=== PATIENT | male | born 1945 | race Caucasian/White ===

== ENCOUNTER 2017-02-17 23:28 | Inpatient (IN) | payer MEDICARE, OTHER ==
[2017-02-18 00:17] LABS: Band 2 % (5-11); Hematocrit 57.5 % (42.0-52.0); Mean Platelet Volume 9.8 fL (7.4-10.4); Neutrophil 82 % (42-75); Red Blood Cell (RBC) Count 5.77 mill/uL (4.70-6.10); White Blood Cell (WBC) Count 20.2 thou/uL (4.8-10.8)
[2017-02-18 00:18] LABS: ALT (SGPT) 18 U/L (8-55); AST (SGOT) 28 U/L (5-34); Alkaline Phosphatase 89 U/L (40-150); Anion Gap 15 mmol/L (10-20); BUN (Urea Nitrogen) 23 mg/dL (8.4-25.7); Bilirubin, Total 0.7 mg/dL (0.2-1.2); CK (CPK) 155 U/L (30-200); Calc. Creatinine Clearance 0 mL/min (70-130); Calcium 10.1 mg/dL (7.8-10.44); Carbon Dioxide 24 mmol/L (23-31); Chloride 103 mmol/L (98-107); Estimated GFR-MDRD 32; Globulin 3.7 g/dL (2.4-3.5); Lipase 38 U/L (8-78); Protein, Total 7.8 g/dL (5.8-8.1)
[2017-02-18 00:25] LABS: Troponin I 0.011 ng/mL (< 0.028)
[2017-02-18] MEDS ORDERED: cefTRIAXone\\ROCEPHIN 1 GM VIAL ONE (01:49)
[2017-02-18] MEDS ORDERED: Sodium Chloride 0.9% 100 ML ONE (01:49)
[2017-02-18 02:11] LABS: Lactic Acid - Sepsis 1.8 mmol/L (0.5-2.2)
[2017-02-18] MEDS ORDERED: Morphine 2 MG/ML SYRINGE ONE (03:09)
[2017-02-18] MEDS ORDERED: methylPREDNISolone Sod Succ/PF 125 MG/2 ML VIAL ONE (03:09)
[2017-02-18] MEDS ORDERED: Water For Inject, Bacteriostat 30 ML ONE (03:10)
[2017-02-18 04:32] LABS: Bilirubin Small (Negative); Blood, Urine Negative (Negative); Glucose, Urine (Dipstick) Negative (Negative); Ketone, Urine Trace mg/dL (Negative); Nitrite Positive (Negative); Protein, Urine (Dipstick) 30 mg/dL (Neg-Trace)
[2017-02-18 04:36] LABS: Bacteria/HPF None Seen HPF (None Seen); RBC/HPF 0-3 HPF (0-3); Squamous Epithelial 0-3 HPF (0-3)
[2017-02-18 04:51] LABS: Oval Fat Bodies/HPF None Seen HPF (None Seen); Renal Epithelial 0-3 HPF (0-3); Sperm/HPF None Seen HPF (None Seen); Transitional Epithelial NONE SEEN HPF (0-3); Trichomonas/HPF None Seen HPF (None Seen); Yeast-All Forms None Seen HPF (None Seen)
[2017-02-18 05:24] LABS: Troponin I 0.014 ng/mL (< 0.028)
[2017-02-18] MEDS: Sodium Chloride 0.45% 1,000 ML IV SCH ×2 (06:33→13:49)
[2017-02-18] MEDS: metroNIDAZOLE 500 MG in Premix Bag 1 BAG IVPB SCH ×3 (06:41→21:29)
[2017-02-18 08:14] LABS: Troponin I 0.013 ng/mL (< 0.028)
[2017-02-18 08:30] VITALS: BMI 24.5
--- NOTE | 2017-02-18 09:28 | RAD ---
CHEST 1 VIEW: HISTORY: Cough. COMPARISON: Chest 1 view 02/26/14. FINDINGS: Continued elevation of left hemidiaphragm. Linear opacities of both lung bases with compressive ate lectasis left lower lobe. No pneumothorax. IMPRESSION: 1. No acute intrathoracic abnormality. 2. Chronic elevation of left hemidiaphragm. POS: [facility]
--- NOTE | 2017-02-18 10:57 | CT ---
PRELIMINARY REPORT/[facility]/EMERGENCY AFTER HOURS PROCEDURE: EXAM: CT Angiography Chest With Intravenous Contrast CLINICAL HISTORY: 73 years old, male; Hip pain; abdominal pain; chest pain. No diarrhea. No fever. He reports nausea c hills, diaphoresis. SX: stent placement. Prior splenectomy 01/20/2014, bladder ca sx, mass removed f rom pancreass TECHNIQUE: Axial computed tomographic angiography images of the chest with intravenous contrast using pulmonary embolism protocol. Coronal reformatted images were created and reviewed. Oblique reformatted images were created and reviewed. CONTRAST: 60 mL of ISOVUE 370 administered intravenously. COMPARISON: No relevant prior studies available. FINDINGS: Pulmonary arteries: No evidence of pulmonary embolism. Aorta: Normal caliber thoracic aorta without dissection or aneurysm. Lungs: Left lung base areas of consolidation and/or atelectasis adjacent to the left hemidiaphragm. Areas of linear parenchymal scarring or subsegmental collapse / atelectasis in the right lung. Small calcified granuloma lateral left lower lobe image 67, series 2. Pleural space: No pleural fluid collection. No pneumothorax. Heart: No pericardial effusion. Coronary artery and aortic valve annulus calcification. No evidence of RV dysfunction. Bones/joints: Spinal degenerative changes. No acute fracture. No dislocation. Soft tissues: Unremarkable. Lymph nodes: No pathologically enlarged lymph nodes. IMPRESSION: 1. No evidence of pulmonary embolism. 2. Left lung base areas of consolidation and/or atelectasis adjacent to the left hemidiaphragm. 3. Areas of linear parenchymal scarring or subsegmental collapse / atelectasis in the right lung. Thank you for allowing us to participate in the care of your patient. Dictated and Authenticated by: Moshe Cochran MD 02/18/2017 4:15 AM Central Time ([place] \T\ [place]) FINAL REPORT CT ANGIOGRAM OF THE CHEST WITH COTNRAST: HISTORY: Chest pain. Cough. COMPARISON: CTA of the chest from 2014. TECHNIQUE: CT angiogram chest performed after intravenous administration of contrast. Three-D rendering is pro vided. FINDINGS/IMPRESSION: Findings and impression are concordant with the preliminary report. In addition, there is some mucu s plugging of the right lower lobe bronchi suggesting bronchopneumonia or aspiration. POS: [facility]
--- NOTE | 2017-02-18 10:58 | CT ---
PRELIMINARY REPORT/[facility]/EMERGENCY AFTER HOURS PROCEDURE: EXAM: CT Abdomen and Pelvis With Intravenous Contrast CLINICAL HISTORY: 73 years old, male; Hip pain; abdominal pain; chest pain. No diarrhea. No fever. He reports nausea, chills, diaphoresis. SX: stent placement. Prior splenectomy 01/20/2014, bladder ca sx, mass removed from pancreass TECHNIQUE: Axial computed tomography images of the abdomen and pelvis with intravenous contrast. Coronal reformatted images were created and reviewed. CONTRAST: 60 mL of ISOVUE 370 administered intravenously. COMPARISON: No relevant prior studies available. FINDINGS: Lower thorax: Left lung base areas of consolidation and/or atelectasis adjacent to the left hemidiap hragm. Coronary artery calcification. ABDOMEN: Liver: Unremarkable. No mass. Gallbladder and bile ducts: Unremarkable. No calcified stones. No ductal dilation. Pancreas: Unremarkable. No mass. No ductal dilation. Spleen: Prior splenectomy. Adrenals: Unremarkable. No mass. Kidneys and ureters: No hydronephrosis. Bilateral renal cysts. Stomach and bowel: Diffuse wall thickening of the descending colon and proximal / mid sigmoid colon with pericolonic stranding indicating a colitis. No obstruction. Appendix: No findings to suggest acute appendicitis. PELVIS: Bladder: Unremarkable. No mass. Reproductive: Enlarged prostate gland measuring 5.3 cm transversely with internal calcifications. Prior vasectomy. ABDOMEN and PELVIS: Intraperitoneal space: Unremarkable. No free air. No significant fluid collection. Bones/joints: Spinal degenerative changes. No acute fracture. No dislocation. Soft tissues: Anterior left abdominal wall fat-containing ventral hernia. Vasculature: Unremarkable. No abdominal aortic aneurysm. Lymph nodes: Unremarkable. No enlarged lymph nodes. IMPRESSION: 1. Diffuse wall thickening of the descending colon and proximal / mid sigmoid colon with pericolonic stranding indicating a colitis. 2. Enlarged prostate gland measuring 5.3 cm transversely with internal calcifications. 3. Prior splenectomy. 4. Left lung base areas of consolidation and/or atelectasis adjacent to the left hemidiaphragm. Thank you for allowing us to participate in the care of your patient. Dictated and Authenticated by: Moshe Cochran MD 02/18/2017 4:15 AM Central Time ([place] \[place]\ [place]) FINAL REPORT CT ABDOMEN AND PELVIS WITH CONTRAST: HISTORY: Abdominal pain. Nausea. Chest pain. Surgery for bladder cancer. COMPARISON: CT abdomen and pelvis 02/01/14. FINDINGS/IMPRESSION: Findings and impression are concordant with the preliminary report. In addition, there is focal ect jairo of the infrarenal abdominal aorta measuring 2.9 x 2.5 cm for a craniocaudal length of 3 cm. Severe degenerative disease at L5-S1. POS: [facility]
[2017-02-18] MEDS ORDERED: cefTRIAXone\\ROCEPHIN 1 GM, Admixture Fee 1 EACH in Sodium Chloride 0.9% 100 ML IVPB SCH (14:00)
[2017-02-18] MEDS: PROVENTIL INHALER 6.7 G (200 INHALATIONS) INH SCH ×4 (15:40→23:10)
[2017-02-18] MEDS: Ipratropium Bromide 2.5 ml Neb NEB SCH ×3 (15:41→23:14)
[2017-02-18] MEDS ORDERED: Iopamidol 370 76% 100 ML VIAL ONE (16:05)
--- NOTE | 2017-02-18 16:50 | HP ---
TIME: 11:00 a.m. CHIEF COMPLAINT: Abdominal pain and chest pain. HISTORY OF PRESENT ILLNESS: This is a 72-year-old male with a history of chronic obstructive pulmon chavez disease, coronary artery disease, type 2 diabetes, hypertension and hyperlipidemia, presenting w ith a 1 day history of worsening chest and abdominal pain. He states that 2 days prior to admission , he was feeling well in his usual state of health. The day before admission, he started feeling il l in the evening with significant abdominal pain as the first presenting symptom. This pain worsene d throughout the course of the night and was associated with diaphoresis and feeling short of breath . He presented to the ER late last evening complaining of severe abdominal pain with cramping and d iarrhea as well as chest pain and shortness of breath. The ER doctor's assessment was a chronic obs tructive pulmonary disease exacerbation, rule out myocardial infarction and this is the report I rec eived. When I spoke to the patient this morning, it seems that his symptoms are really more abdomin al than chest related. His chest pain is completely resolved by the time I saw him this morning; ho wever, he continues to have abdominal pain and loose stool. PAST MEDICAL HISTORY: 1. Type 2 diabetes, on insulin. 2. Chronic obstructive pulmonary disease. 3. Coronary artery disease. 4. Hypertension. 5. Hyperlipidemia. 6. Major depression. 7. History of hepatitis C. 8. History of bladder cancer. PAST SURGICAL HISTORY: 1. Bladder resection. 2. Coronary artery disease, stenting in 2011. 3. Splenectomy in 2013. 4. Partial pancreatectomy in 2013. 5. Incisional hernia repair in 2015. 6. Last colonoscopy in 2012 was normal. HOME MEDICATIONS: Include the following; 1. Albuterol 2 puffs q.4 hours p.r.n. 2. Aspirin 81 mg daily. 3. Atorvastatin 10 mg daily. 4. Carvedilol 6.25 b.i.d. 5. Cymbalta 60 mg daily. 6. Prozac 20 mg daily. 7. Neurontin 300 mg daily. 8. Lisinopril 5 mg daily. 9. Bupropion 100 mg daily. 10. Omeprazole 40 mg daily. 11. Levemir pen 12 units q.h.s. 12. Vitamin C. 13. Fish oil. 14. Vitamin B12. ALLERGIES: Include LEVAQUIN and HYDROMORPHONE. FAMILY HISTORY: Noncontributory. SOCIAL HISTORY: He is , lives with his . He denies smoking, although he does report occ asional marijuana use. REVIEW OF SYSTEMS: General: No fever, no fatigue. He did have some chills overnight associated wi th this crampy abdominal pain. HEENT: Negative. Cardiovascular: Significant for chest pain overn ight, although this resolved at this point in time. Pulmonary: Positive for shortness of breath, i mproved at this time. Gastrointestinal: Significant for abdominal pain, nausea. No vomiting. Pk e diarrhea. No constipation. Neurologic: Negative. Skin: Negative. Genitourinary: Negative. PHYSICAL EXAMINATION: VITAL SIGNS: Temperature 97, pulse 87, respirations 20, O2 saturation 93% on 2 liters and blood pre ssure 141/97. GENERAL: This is an elderly male in no apparent distress, but who appears moderately uncomfortable. HEENT: Unremarkable. HEART: Regular rate and rhythm with no murmurs. LUNGS: Clear to auscultation bilaterally, but with diminished breath sounds throughout both lung fi elds. ABDOMEN: Soft, slightly hyperactive bowel sounds. Tenderness on the left lower quadrant and extend ing up the left flank. EXTREMITIES: Show no clubbing, cyanosis or edema. NEUROLOGIC: Nonfocal. LABORATORY AND X-RAY FINDINGS: White count 20.2, hemoglobin 18.1, hematocrit 57.5 and platelets 247 . D-dimer is greater than 20. Comprehensive metabolic panel is significant for creatinine of 2.07, otherwise normal. Urinalysis is positive for nitrites, trace ketones, small leukocyte esterase and 4-6 wbc's. Stool studies were negative for Campylobacter and Shigella toxin. C. difficile was neg ative, but stool occult blood was positive. Chest x-ray: No acute intrathoracic abnormality and ch ronic elevation of the left hemidiaphragm. A CT angio of the chest for the elevated D-dimer, this d id not show any evidence of PE. He also had a CT of the abdomen and pelvis, the dictation is not av ailable at the time of this dictation, but by the ER report, there is a diffuse wall thickening of t he descending colon and proximal mid sigmoid colon with pericolonic stranding indicating colitis. T here is an enlarged prostate gland measuring 5.3 cm, history of splenectomy, left lung base with an area of consolidation or atelectasis adjacent to the left hemidiaphragm. This is a chronic finding. ASSESSMENT: This is a 72-year-old male presenting with: 1. Severe abdominal pain and what appears to be a colitis of the descending colon. 2. Chronic obstructive pulmonary disease without acute exacerbation. 3. Type 2 diabetes, stable. 4. Coronary artery disease. 5. Hypertension. 6. Hyperlipidemia. 7. Major depression. PLAN: The patient was admitted for management of the above problems: 1. For the colitis, he was started on IV Flagyl and will consult GI. It is unclear to me whether t his is ischemic or infectious. Initial infection studies are negative, although he does have an joleen vated white count. We will await GI input on this. 2. He can have a full liquid diet for now until GI weighs in on whether or not they want to scope h im. 3. Continue home medications. 4. Acute renal insufficiency. This may simply be due to the profuse diarrhea that he had last nigh t. We will recheck his labs in the morning.
[2017-02-18] MEDS ORDERED: INSULIN DETEMIR SC SCH (21:00)
[2017-02-18] MEDS: Carvedilol 6.25 MG TAB PO SCH (21:29)
[2017-02-18] MEDS: Tamsulosin HCl 0.4 MG CAP PO SCH (21:29)
[2017-02-18] MEDS: buPROPion HCl 100 MG TAB PO SCH (21:29)
[2017-02-18] MEDS: Insulin Detemir 100 UNITS/ML 9 UNITS in Pre-Filled Syringe 1 EACH SC SCH (21:30)
[2017-02-19] MEDS: cefTRIAXone\\ROCEPHIN 1 GM, Admixture Fee 1 EACH in Sodium Chloride 0.9% 100 ML IVPB SCH ×2 (01:34→13:36)
--- NOTE | 2017-02-19 01:40 | CON ---
DATE OF CONSULTATION: 02/18/2017 REFERRING PHYSICIAN: Ainsley Shah MD REASON FOR CONSULTATION: 1. Blood in the stool. 2. Abdominal pain, fever, chills, and cold sweats yesterday. HISTORY OF PRESENT ILLNESS: Mr. Tremaine Mendez is a very pleasant 72-year-old male who appe ars comfortable at the present time. The patient was brought to the ER by the family because of off and on abdominal cramping pain, which was very severe in origin with some fever and chills alternat ing with cold sweat. He also had an explosive bowel movement yesterday and he felt very bloated and distended. The patient has no hematochezia or melena. However, the stool guaiac done came back po sitive while in hospital. The patient is known to Dr. Sosa from before. The patient had a colonosc opy in 2012 and was found to have sigmoid diverticulitis. An EGD at that time revealed no pathology . The patient was also hospitalized here in 2012 with findings of supraventricular tachycardia. At that time, he underwent ablation. During the admission, he also has some abdominal pain and some m ild bleeding in the stool. He underwent an abdominal CAT scan and the CAT scan was reported as coli tis. Dr. Sosa perfomed another colonoscopy in 2012. The patient has had pancreatitic cyst and has had an in [place], [place]. He underwent surgery in [place] in 2013. After surgery, he says he d eveloped diabetes and also developed a ventral hernia, he has had the hernia repaired 3 times. The last one was in 2012, and the hernia keeps coming back. He is very unhappy about this hernia and he also has some pain. At the present time, he appears very comfortable and in no distress. However, he says he still has [id number] abdominal pain. The patient had no stool today. There is no nausea, no vomiting. He has no other relevant history. ALLERGIES: LEVOFLOXACIN, HYDROMORPHONE. SOCIAL HISTORY: The patient is . He quit smoking. He does not drink any alcohol. MEDICAL ILLNESSES: 1. Diabetes mellitus. 2. Chronic obstructive pulmonary disease. 3. Prostatic hypertrophy. 4. Bladder cancer, status post surgery. 5. Pancreatic cyst, status post partial pancreatic resection in [place] in 2013. 6. Incisional hernia over the left upper quadrant, status post surgery and the last one was in [address] Winters. 7. Depression. 8. Hypertension. 9. Acid reflux. 10. History of bladder cancer surgery in the past. 11. History of SVT, status post ablation in 2012. 12. History of hepatitis C, status post treatment in the past. MEDICATIONS: List reviewed which included Wellbutrin, Spiriva inhaler, tamsulosin, omeprazole, nitr oglycerin, lisinopril, insulin, gabapentin, fluoxetine, duloxetine, and Coreg. He is also on atorva statin, aspirin, vitamin C, albuterol inhaler. FAMILY HISTORY: Negative for any liver cancer, colon cancer, stroke, etc. REVIEW OF SYSTEMS: A 10-point system reviewed. 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 Respiratory system: No history of chronic cough, but has lessened whee zing off and on and also has some mild exertional dyspnea. Cardiovascular system: At the present t harleen, no chest pain, no palpitation, no orthopnea or PND. Gastrointestinal: As in history of presen t illness. Genitourinary: No dysuria, hematuria, or frequency of urination. Extremities: No pain or edema. PHYSICAL EXAMINATION: GENERAL: The patient is awake, alert, and communicative. He is in no acute distress. VITAL SIGNS: Stable. Temperature 98.4 degrees Fahrenheit, pulse is 93, blood pressure is 147/82. HEENT: Conjunctivae clear. NECK: Supple. No adenitis or thyromegaly noted. CARDIOVASCULAR: First and second heart sounds normal. LUNGS: Clear to auscultation except for rhonchi. ABDOMEN: Soft to palpate. He does have a ventral hernia over the left upper quadrant. The hernia reduced. He is tender diffusely all over the abdomen. There is no rebound or guarding. Bowel soun ds are normal. EXTREMITIES: Reveal no edema. LABORATORY AND DIAGNOSTIC DATA: CBC: WBC 20,200, hemoglobin 18.1, hematocrit 57.5, MCV 99.6, plate let count 247,000, polymorphs 52, bands 2, lymphocytes 14. Serum chemistries: Sodium 138, potassiu m 3.7, chloride 103, bicarbonate 24, BUN is 23, creatinine 2.07, glucose 149, calcium 10.1, bilirubi n 0.7, AST 28, ALT 18, alkaline phosphatase 89. CPK 3.5, troponin 0.011, total protein 7.8, albumin 4.1, lipase 38. An abdominal CAT scan showed evidence of colitis with diffuse wall thickening of t he descending colon and proximal and mid sigmoid colon. Enlarged prostate and also left lower lobe atelectasis. CLINICAL IMPRESSION: A 72-year-old male with abdominal pain, nausea, fever, chills, bleed ing, and cold sweat. The symptoms are actually very slowly resolving. He has no fever at the prese nt time. Abdomen is nondistended, but does have tenderness diffusely. There is no rebound or guard ing. Abdomen is marked for no guarding or rigidity. On going out to the [facility] [place], he had a CAT sca n done in 2013 and again showed some colitis. He had the similar findings in 2013, which showed lef t colon wall thickening. The CAT scan shows colitis of the left colon. Based on the information, I believe most likely he has ischemic colitis. possibly. RECOMMENDATIONS: 1. Analgesics. 2. Clear liquid diet. 3. IV fluids. 4. IV antibiotics. Dr. Sosa had seen before in the past and will see Dr. Sosa who will decide if he will need any furth er colonoscopy. He has had a colonoscopy in 2013 that was basically normal. I am really not sure lonny villagran needs another colonoscopy. In the meantime, treat him symptomatically.
[2017-02-19] MEDS: PROVENTIL INHALER 6.7 G (200 INHALATIONS) INH SCH ×5 (03:04→22:47)
[2017-02-19 05:23] LABS: Anion Gap 9 mmol/L (10-20); BUN (Urea Nitrogen) 18 mg/dL (8.4-25.7); Calc. Creatinine Clearance 76 mL/min (70-130); Calcium 8.3 mg/dL (7.8-10.44); Carbon Dioxide 26 mmol/L (23-31); Chloride 104 mmol/L (98-107); Estimated GFR-MDRD 77
[2017-02-19] MEDS: metroNIDAZOLE 500 MG in Premix Bag 1 BAG IVPB SCH ×3 (05:27→22:49)
[2017-02-19 05:54] LABS: Band 9 % (5-11); Burr Cells SLIGHT = 2-5 cells (100X) (0-1/hpf); Hematocrit 39.6 % (42.0-52.0); Mean Platelet Volume 10.1 fL (7.4-10.4); Neutrophil 80 % (42-75); Red Blood Cell (RBC) Count 3.97 mill/uL (4.70-6.10); White Blood Cell (WBC) Count 29.7 thou/uL (4.8-10.8)
[2017-02-19] MEDS: Ipratropium Bromide 2.5 ml Neb NEB SCH ×3 (06:35→18:49)
[2017-02-19] MEDS ORDERED: Aspirin 325 MG TAB PO SCH (09:00)
[2017-02-19] MEDS: Aspirin 81 mg Enteric Coated Tablet PO SCH (09:27)
[2017-02-19] MEDS: FLUoxetine HCl 20 MG CAP PO SCH (09:28)
[2017-02-19] MEDS: Carvedilol 6.25 MG TAB PO SCH ×2 (09:28→20:46)
[2017-02-19] MEDS: Gabapentin 300 MG CAP PO SCH (09:29)
[2017-02-19] MEDS: Lisinopril 5 MG TAB PO SCH (09:29)
[2017-02-19] MEDS: buPROPion HCl 100 MG TAB PO SCH ×2 (11:13→20:47)
--- NOTE | 2017-02-19 13:16 | PRG ---
DATE OF SERVICE: 02/19/2017 TIME: 11:45 a.m. SUBJECTIVE: The patient reports he feels much better today. He has tolerated a full liquid diet si nce yesterday without any significant symptoms. He had a normal soft bowel movement this morning wi thout any blood observed and no loose stool. He states his pain is improved from yesterday. OBJECTIVE: VITAL SIGNS: Temperature 98.0, pulse 78, respirations 18, O2 saturation 98% on room air, blood pres sure 144/75. GENERAL: Well-developed, well-nourished male in no apparent distress. HEENT: Unremarkable. HEART: Regular rate and rhythm with no murmurs. LUNGS: Clear to auscultation bilaterally. ABDOMEN: Soft, mild tenderness in both right and left lower quadrants, but otherwise unremarkable. EXTREMITIES: Show no clubbing, cyanosis, or edema. NEUROLOGIC: Nonfocal. LABORATORY DATA: He did have an increase in his white blood cell count from 20.2 to 29.7. We will repeat this again tomorrow. Chemistry is unremarkable. ASSESSMENT: 1. This is a 72-year-old male with what is most likely ischemic colitis. He is getting IV antibiot ics and will continue this for the time being. 2. Chronic obstructive pulmonary disease without acute exacerbation. 3. Type 2 diabetes. 4. Coronary artery disease. 5. Hypertension. 6. Hyperlipidemia. 7. Major depression. PLAN: 1. For the colitis, we will continue his IV Flagyl for now. We can advance his diet today to full diet. Dr. Chambers saw him yesterday and does not feel like colonoscopy is necessarily indicated a t this time. 2. Acute renal insufficiency. This is improving somewhat. Again, we will check his labs again becki orrow morning. 3. Continue home medications.
--- NOTE | 2017-02-19 18:17 | PRG ---
DATE OF SERVICE: 02/19/2017 HOSPITAL VISIT NOTE HISTORY OF PRESENT ILLNESS: This is a 72-year-old male hospitalized with abdominal pain, fever, and chills and cold sweat. He had abdominal CAT scan done, evidence of colitis. He is on IV antibiotics. He is also on IV morphine for pain relief. He looks a whole lot better. His a bdominal pain is markedly improved. He feels hungry and he wants to eat some solid food. He did no t have any fever, no nausea or vomiting. PHYSICAL EXAMINATION: GENERAL: Appears comfortable. He is afebrile. Pulse is 70, blood pressure 133/89. CARDIOVASCULAR: First and second heart sounds are normal. LUNGS: Clear to auscultation. ABDOMEN: Soft to palpate. Abdomen is nondistended. Abdomen is nontender. He has a large ventral hernia over the left lower quadrant. RECOMMENDATIONS: 1. 1800 ADA diet. 2. If he does well on his diet, discharge home tomorrow.
[2017-02-19] MEDS: Insulin Detemir 100 UNITS/ML 9 UNITS in Pre-Filled Syringe 1 EACH SC SCH (20:47)
[2017-02-19] MEDS: Tamsulosin HCl 0.4 MG CAP PO SCH (20:47)
[2017-02-19] MEDS ORDERED: Atorvastatin Calcium 10 MG TAB PO SCH (21:00)
[2017-02-20 01:25] VITALS: TEMP 98.1
[2017-02-20] MEDS: cefTRIAXone\\ROCEPHIN 1 GM, Admixture Fee 1 EACH in Sodium Chloride 0.9% 100 ML IVPB SCH (02:48)
[2017-02-20] MEDS: PROVENTIL INHALER 6.7 G (200 INHALATIONS) INH SCH ×3 (03:53→08:28)
[2017-02-20] MEDS: Ipratropium Bromide 2.5 ml Neb NEB SCH ×2 (03:55→06:52)
[2017-02-20] MEDS: metroNIDAZOLE 500 MG in Premix Bag 1 BAG IVPB SCH (06:22)
[2017-02-20 06:32] LABS: Band 7 % (5-11); Hematocrit 41.8 % (42.0-52.0); Mean Platelet Volume 10.2 fL (7.4-10.4); Neutrophil 79 % (42-75); Red Blood Cell (RBC) Count 4.18 mill/uL (4.70-6.10); White Blood Cell (WBC) Count 20.6 thou/uL (4.8-10.8)
[2017-02-20 06:35] LABS: ALT (SGPT) 14 U/L (8-55); AST (SGOT) 21 U/L (5-34); Alkaline Phosphatase 57 U/L (40-150); Anion Gap 10 mmol/L (10-20); BUN (Urea Nitrogen) 11 mg/dL (8.4-25.7); Bilirubin, Total 0.5 mg/dL (0.2-1.2); Calc. Creatinine Clearance 94 mL/min (70-130); Calcium 8.9 mg/dL (7.8-10.44); Carbon Dioxide 29 mmol/L (23-31); Chloride 103 mmol/L (98-107); Estimated GFR-MDRD 90; Protein, Total 6.4 g/dL (5.8-8.1)
[2017-02-20] MEDS: buPROPion HCl 100 MG TAB PO SCH (09:14)
[2017-02-20] MEDS: Aspirin 81 mg Enteric Coated Tablet PO SCH (09:14)
[2017-02-20] MEDS: Carvedilol 6.25 MG TAB PO SCH (09:15)
[2017-02-20] MEDS: FLUoxetine HCl 20 MG CAP PO SCH (09:15)
[2017-02-20] MEDS: Gabapentin 300 MG CAP PO SCH (09:15)
[2017-02-20] MEDS: Lisinopril 5 MG TAB PO SCH (09:15)
--- NOTE | 2017-02-20 10:20 | DIS ---
ADMISSION DIAGNOSES: Acute abdominal pain secondary to colitis. DISCHARGE DIAGNOSES: 1. Colitis, improved. 2. Acute urinary tract infection. 3. Type 2 diabetes. 4. Chronic obstructive pulmonary disease. 5. Known coronary disease. 6. History of bladder cancer, status post resection. PROCEDURES: IV antibiotics, rule out [place] protocol, CT abdomen and pelvis. CONSULTATIONS: Dr. Chambers for GI. HOSPITAL COURSE: This is a 72-year-old gentleman with multiple medical problems who was recently se en by Dr. Theodore for followup from his bladder cancer. He had a cystoscopy at that time and everyth ing was clear. The day prior to admission, he developed severe abdominal pain and chest pain. He w as found to be febrile in the emergency department. He was initially admitted from the ER for chest pain, rule out myocardial infarction, then later discovered he had more symptoms of abdominal pain consistent with colitis. He was made n.p.o. He was seen by Dr. Chambers. He was started on Rocep hin and Flagyl with significant improvement of his symptoms. He was ambulating in the [facility] rating an oral diet. He had some vague lower abdominal pain, but much improved from admission and w as stable for discharge on the day of discharge. DISCHARGE PHYSICAL EXAMINATION: VITAL SIGNS: Temperature 98.1 with a T-max of 98.7, pulse 65, respirations 16, blood pressure 155/7 1, pulse ox 93% on room air. GENERAL: He is awake and alert, in no acute distress. Speech is clear. NECK: Supple. HEART: Regular rate and rhythm. LUNGS: Lungs are distant bilaterally, but no wheeze, rales or rhonchi. ABDOMEN: Positive bowel sounds, soft, minimal suprapubic tenderness, but no rebound or guarding. DISCHARGE LABORATORY DATA: White blood cell count 20.6, which is down from 29.7 with a normal diffe rential. Hemoglobin and hematocrit 13.2 and 41.8, platelets 200. Sodium 138, potassium 3.6, chlori de 103, CO2 29, BUN and creatinine 11 and 0.84, serum glucose 123, AST and ALT are normal. Urinalys is was positive. Urine culture growing Staph epidermidis which was sensitive to the cephalosporins. C. diff and stool culture were all negative. Guaiac stool was positive x1. CT abdomen and pelvis revealed just diffuse wall thickening in the descending colon and mid sigmoid consistent with colit is, enlarged prostate. DISCHARGE MEDICATIONS: Cefdinir 300 mg b.i.d. for 7 more days, Proventil p.r.n., Ecotrin 81 mg liz y, Lipitor 10 mg daily, bupropion 100 mg b.i.d., carvedilol 6.25 mg b.i.d., Cymbalta 60 mg daily, ga bapentin 300 mg daily, Levemir 9 units daily, lisinopril 5 mg daily, Atrovent p.r.n., Protonix 40 mg daily, tamsulosin 0.4 mg daily. FOLLOWUP INSTRUCTIONS: The patient to follow up in my office in 1-2 weeks and follow up with Dr. Lillian luther as well.
[2017-02-20 19:01] VITALS: BP 133/87
== END 2017-02-20 10:55 | disposition home or self-care (01) | DRG 394 ==
LOC: ERS 23:28 → EDBD 02-18 04:00 → 2NO 02-18 04:00
PROVIDERS: ADMIT Family Medicine; ATTEND Family Medicine
DX: K55.9 Vascular disorder of intestine, unspecified (principal); N39.0 Urinary tract infection, site not specified; J44.9 Chronic obstructive pulmonary disease, unspecified; E11.9 Type 2 diabetes mellitus without complications; I10 Essential (primary) hypertension; B95.8 Unspecified staphylococcus as the cause of diseases classified elsewhere; Z90.6 Acquired absence of other parts of urinary tract; E78.5 Hyperlipidemia, unspecified; N40.0 Benign prostatic hyperplasia without lower urinary tract symptoms; I25.10 Atherosclerotic heart disease of native coronary artery without angina pectoris; N28.9 Disorder of kidney and ureter, unspecified; F32.9 Major depressive disorder, single episode, unspecified; Z85.51 Personal history of malignant neoplasm of bladder; Z95.5 Presence of coronary angioplasty implant and graft; Z79.4 Long term (current) use of insulin; Z79.82 Long term (current) use of aspirin; Z88.1 Allergy status to other antibiotic agents; Z88.5 Allergy status to narcotic agent; Z90.49 Acquired absence of other specified parts of digestive tract; Z90.81 Acquired absence of spleen
CPT/HCPCS: 36415; 36416; 51701; 71010; 71275; 74177; 80048; 80053; 81003; 81015; 82274; 82550; 82553; 83605; 83690; 83880; 84484; 85025; 85379; 87015; 87045; 87046; 87077; 87086; 87186; 87324; 87449; 87899; 93005; 94640; 94664; 96361; 96365; 96375; A4216; J0696; J1815; J2270; J2930; J7050; J7620; J7644

== ENCOUNTER 2018-04-08 17:53 | Emergency (ER) | payer MEDICARE, OTHER | END 2018-04-08 18:47 | disposition home or self-care (01) | LOC: SCSER 17:53 | DX: S61.012A Laceration without foreign body of left thumb without damage to nail, initial encounter (principal); S61.211A Laceration without foreign body of left index finger without damage to nail, initial encounter; I10 Essential (primary) hypertension; J44.9 Chronic obstructive pulmonary disease, unspecified; E78.5 Hyperlipidemia, unspecified; F41.9 Anxiety disorder, unspecified; Z87.891 Personal history of nicotine dependence; W45.8XXA Other foreign body or object entering through skin, initial encounter | CPT/HCPCS: 99283 ==

== ENCOUNTER 2019-12-03 14:29 | Outpatient (CLI) | payer MEDICARE, OTHER ==
--- NOTE | 2019-12-03 15:27 | ULT ---
BILATERAL CAROTID DUPLEX ULTRASOUND: HISTORY: Peripheral arterial disease. Left-sided neck pain. TECHNIQUE: Grayscale, color-flow and spectral Doppler ultrasound imaging of the extracranial carotid artery syst ems was performed bilaterally. FINDINGS: Calcified atherosclerotic plaque is seen in the right carotid bulb and proximal right internal caroti d artery There is no hemodynamically significant stenosis in the bilateral internal carotid arteries according to the peak systolic velocities and the ICA/CCA ratios. The peak systolic velocity in the right ICA measures 66.5 cm/s. The peak systolic velocity in the left ICA measures 67.4 cm/s. The right IC A/CCA ratio is 0.96, and the left ICA/CCA ratio is 0.84. Vertebral arteries: Antegrade flow is demonstrated in the vertebral arteries bilaterally. IMPRESSION: No hemodynamically significant stenosis in the bilateral internal carotid arteries.
== END 2019-12-03 14:30 | disposition home or self-care (01) ==
LOC: BICULT 14:29
PROVIDERS: ATTEND Family Medicine
DX: I25.10 Atherosclerotic heart disease of native coronary artery without angina pectoris (principal); I73.9 Peripheral vascular disease, unspecified; M54.2 Cervicalgia
CPT/HCPCS: 93880

== ENCOUNTER 2020-01-03 14:15 | Outpatient (CLI) | payer MEDICARE, OTHER ==
[~2020-01-03 14:15] MED LIST: Iopamidol 370 76% 100 ML VIAL ONE
--- NOTE | 2020-01-03 16:17 | CT ---
CT neck soft tissues with contrast: 01/03/2020 HISTORY: 74-year-old male with dysphagia and odynophagia. Dr. Metcalf reported the base of tongue malignancy by telephone to Dr. Olvera at 4:06 PM 01/03/2020 FINDINGS: There is rim enhancement along the deep and superficial margins of asymmetrical, very irregular lingu al tonsil, at base of tongue. This tumor reaches the greatest distance anteriorly to the left of midline into the left root of tongue, on the posterior aspect of the left genioglossus muscle. This p articular component of the tumor at the left side of base of tongue measures approximately 1.5 x 2 x 2 cm. Thinner components of tumor reached the right side and left side peripherally at the lingual tonsil. The tumor involves the vallecula bilaterally and at midline, broad there is no definite evidence of involvement of the epiglottis. The rest of the larynx is normal. Thyroid gland is not enl arged. Although no significantly enlarged cervical lymph nodes are identified, a PET scan would be more sens itive for the detection of metastatic cervical lymphadenopathy. No major pathology identified involving the submandibular, parotid, carotid, retropharyngeal, posteri or cervical, parapharyngeal, and equipment specialist, spaces. Biapical ground glass pulmonary densities are noted in the posterior segment of right upper lobe and apicoposterior segment of left lower lobe, right worse than left, broadly abutting the superior aspects of the bilateral major fissures. These are nonspecific, and may or may not represent viral pn eumonia. The pattern is not classic for that. IMPRESSION: 1.) Evidence for malignant neoplasm of base of tongue, lingual tonsil, with extension toward left par amedian root of tongue. 2) nonspecific mild groundglass densities at bilateral upper lobes of lungs.
== END 2020-01-03 14:16 | disposition home or self-care (01) ==
LOC: BICCT 14:15
PROVIDERS: ATTEND Specialist
DX: R13.10 Dysphagia, unspecified (principal); C02.4 Malignant neoplasm of lingual tonsil; J98.4 Other disorders of lung
CPT/HCPCS: 70491; 82565

== ENCOUNTER 2020-02-04 09:25 | Outpatient (CLI) | payer MEDICARE, OTHER ==
--- NOTE | 2020-02-04 12:11 | PET ---
Nuclear medicine FDG PET/CT: (Positron emission tomography and computed tomography) DATE: 02/04/2020 HISTORY: 75-year-old male with base of tongue cancer. Initial staging. COMPARISON: none TECHNIQUE: IV injection of F-18 fluorodeoxyglucose (FDG) dose: 11.3 mCi. PET scan and attenuation correction CT performed from skull base to proximal thighs. PET scan and attenuation correction CT thinner slices performed through head and neck. FINDINGS: SUV (standard uptake values) numbers given are maximum SUVs. QCLR used. The mass at the lingual tonsil has SUV of 12.4 1 x 0.5 cm right level 2 lymph node has SUV of 5.0. 1.4 x 1.1 cm left level 2 lymph node has SUV of 5.6. No other hypermetabolic cervical lymph nodes. There is diffusely increased uptake in all muscles of the neck, chest, and abdomen. According to the technologist, the patient was fidgety and anxious, which probably accounts for the d iffuse muscular uptake. There is no evidence of metastatic disease in the chest, abdomen, or pelvis. IMPRESSION: 1) cancer of lingual tonsil (base of tongue). 2) bilateral level 2 metastatic cervical lymphadenopathy (a single hypermetabolic lymph node on each side). 3) no evidence of distant metastasis.
== END 2020-02-04 09:26 | disposition home or self-care (01) ==
LOC: PET 09:25
PROVIDERS: ATTEND Radiology Radiation Oncology
DX: C01 Malignant neoplasm of base of tongue (principal); C02.4 Malignant neoplasm of lingual tonsil; C77.0 Secondary and unspecified malignant neoplasm of lymph nodes of head, face and neck
CPT/HCPCS: 78815; A9552

== ENCOUNTER 2020-02-11 11:35 | Inpatient (IN) | payer MEDICARE, OTHER ==
--- NOTE | 2020-02-11 12:09 | RAD ---
XR Chest 1 View Portable HISTORY: Chest pain. Base of tongue cancer COMPARISON: 02/18/2017 FINDINGS: The heart size is normal. The aorta is tortuous. There is continued elevation of the left h emidiaphragm. Patchy airspace opacity is noted in the left lung base. No pneumothorax or pleural effusions are seen. IMPRESSION: Findings are suspicious for left basilar pneumonia.
[2020-02-11 12:37] LABS: ALT (SGPT) 15 U/L (8-55); AST (SGOT) 14 U/L (5-34); Albumin 3.1 g/dL (3.4-4.8); Alkaline Phosphatase 93 U/L (40-110); Anion Gap 9 mmol/L (10-20); BUN (Urea Nitrogen) 14 mg/dL (8.4-25.7); Bilirubin, Total 0.4 mg/dL (0.2-1.2); Calc. Creatinine Clearance 0 mL/min (70-130); Calcium 8.4 mg/dL (7.8-10.44); Carbon Dioxide 29 mmol/L (23-31); Chloride 103 mmol/L (98-107); Estimated GFR-MDRD Greater than 90; Globulin 3.5 g/dL (2.4-3.5); Glucose 199 mg/dL (83-110); Potassium 4.1 mmol/L (3.5-5.1); Protein, Total 6.6 g/dL (5.8-8.1); Sodium 137 mmol/L (136-145)
[2020-02-11 12:52] LABS: #Basophils 0.2 thou/uL (0.0-0.2); #Lymphocytes 1.7 thou/uL (1.20-3.40); #Monocytes 0.9 thou/uL (0.11-0.59); #Neutrophils 10.7 thou/uL (1.40-6.50); %Basophils 1.2 % (0.0-1.0); %Eosinophils 0.3 % (0.0-10.0); %Lymphocytes 12.6 % (21.0-51.0); %Monocytes 6.3 % (0.0-10.0); %Neutrophils 79.6 % (42.0-75.0); Hemoglobin 12.4 g/dL (14.0-18.0); MDiff Complete? YES; Macrocytosis SLIGHT = 6-15 cells (100X) (0-5/hpf); Mean Corpuscular HGB CONC 31.1 g/dL (32.0-36.0); Mean Corpuscular Hemoglobin 31.7 pg (27.0-31.0); Mean Platelet Volume 10.5 fL (7.4-10.4); Platelet Count 305 thou/uL (130-400); Platelet Morphology Comment Appears Adequate; RBC Distribution Width 15.3 % (11.5-14.5); Red Blood Cell (RBC) Count 3.92 mill/uL (4.70-6.10); White Blood Cell (WBC) Count 13.5 thou/uL (4.8-10.8)
[2020-02-11] MEDS ORDERED: Cefepime 2 GM VIAL ONE (12:54)
[2020-02-11] MEDS ORDERED: Azithromycin 500 MG VIAL ONE (12:54)
--- NOTE | 2020-02-11 13:39 | CT ---
CT PULMONARY ANGIOGRAM WITH IV CONTRAST AND 3-D POSTPROCESSING: HISTORY:Chest pain, shortness of breath, new diagnosis of tongue cancer, productive cough FINDINGS: There is good contrast opacification of the pulmonary arterial vasculature without filling defects to suggest pulmonary embolism. The thoracic aorta is without aneurysm . No pleural or pericardial effusions are seen. There are patchy opacities in the left lower lobe. Small patchy opacities are also seen in the left u pper lobe. There are dependent changes in the right lung base. No pneumothoraces are seen. There are degenerative changes in the spine. Upper abdominal tomograms demonstrate left renal cyst. IMPRESSION: 1. No CT evidence of pulmonary embolism. 2. Findings suspicious for Left-sided pneumonia.
[2020-02-11] MEDS ORDERED: Iopamidol-370 76% 500 ML 1 ML ONE (14:38)
[2020-02-11 15:54] LABS: Troponin I Less than 0.010 ng/mL (< 0.028)
--- NOTE | 2020-02-11 21:22 | PDOC.HHP ---
Hospitalist HPI - History of Present Illness Cough, shortness of breath History of Present Illness: This is a 75-year-old male patient with a history of BPH, hyperlipidemia, pancreatitis, CHF, bladder cancer, COPD and he notes recently diagnosed tongue cancer who presents to the ED on account of shortness of breath cough and hypoxia. He has a history of COPD and is on 2 L home oxygen intermittently. He he notes becoming progressively short of breath and productive cough. Note intermittent streaks of blood as well. He activated EMS who brought him to the ED for further evaluation. He states that his family wanted him to come to [facility] however he had to be brought here for further evaluation. He denies any chest pain, fever. Of note his about a week ago from lung cancer and therefore feels a bit depressed. This made him reluctant to talk and he had issues with memory. At presentation blood pressure was 145/80, pulse 80, respiration 18, saturating 89 on room air. Improved to 95 on 2 L oxygen. Labs showed BNP of 185, leukocytosis of 13.5, troponin remained flat,. Chest x-ray was notable for possible left basilar pneumonia. Due to concerns of PE he had a CTA which revealed no pulmonary embolism. He was started on azithromycin and ceftriaxone and given 1 L normal saline. Hospitalist team was consulted for admission. Hospitalist ROS - Review of Systems Constitutional: denies: fever, chills, sweats Respiratory: reports: cough (Brownish sputum with blood streaks), shortness of breath, SOB with excertion Cardiovascular: reports: palpitations, orthopnea, paroxysmal noc. dyspnea. denies: chest pain Gastrointestinal: reports: nausea, vomiting, abdominal pain Genitourinary: reports: dysuria, frequency, incontinence - Medication Medications: Albuterol sulfate 2 puffs every 4 as needed Nitroglycerin 0.4 mg as needed Atorvastatin 10 mg daily Carvedilol 6.25 mg twice daily Duloxetine 60 mg daily Tamsulosin 0.4 mg daily Fluoxetine 1 tab daily Insulin 9 units daily Lisinopril 5 mg every morning. Pregabalin 20 mg every morning Omeprazole 40 mg daily Tiotropium bromide 18 mcg H Ascorbic acid 500 mg daily Allergies: Levofloxacin, hydromorphone Hospitalist History - Past Medical History Cardiac: reports: CHF Pulmonary: reports: COPD Other Medical History: Bladder cancer, tongue cancer - Past Surgical History Other Surgical History: Splenectomy, pancreatic mass removal - Family History Other Family History: None of significance. - Social History Smoking Status: Smoker, status unknown Alcohol: reports: None Living Situation: Alone Activity level: independent ambulation - Exam General Appearance: awake alert General - other findings: In mild distress. Eye: PERRL, anicteric sclera ENT: normocephalic atraumatic, no oropharyngeal lesions Neck: no JVD, no lymphadenopathy Heart: RRR, no murmur, no gallops, no rubs Respiratory - other findings: Reduced air entry bilaterally. Coarse breath sounds on left base Gastrointestinal: soft, non-tender, non-distended, normal bowel sounds Extremities: no cyanosis, no clubbing, no edema Hospitalist Results - Labs Result Diagrams: 02/12/20 06:29 02/12/20 06:29 Lab results: WBC 13.5 thou/uL (4.8-10.8) H 02/11/20 12:01 Hgb 12.4 g/dL (14.0-18.0) L 02/11/20 12:01 Hct 39.9 % (42.0-52.0) L 02/11/20 12:01 MCV 102.0 fL (78.0-98.0) H 02/11/20 12:01 Plt Count 305 thou/uL (130-400) 02/11/20 12:01 Neutrophils % 79.6 % (42.0-75.0) H 02/11/20 12:01 Sodium 137 mmol/L (136-145) 02/11/20 12:01 Potassium 4.1 mmol/L (3.5-5.1) 02/11/20 12:01 Chloride 103 mmol/L (98-107) 02/11/20 12:01 Carbon Dioxide 29 mmol/L (23-31) 02/11/20 12:01 BUN 14 mg/dL (8.4-25.7) 02/11/20 12:01 Creatinine 0.76 mg/dL (0.7-1.3) 02/11/20 12:01 Glucose 199 mg/dL (83-110) H 02/11/20 12:01 Lactic Acid 0.9 mmol/L (0.5-2.2) 02/11/20 12:34 Calcium 8.4 mg/dL (7.8-10.44) 02/11/20 12:01 Total Bilirubin 0.4 mg/dL (0.2-1.2) 02/11/20 12:01 AST 14 U/L (5-34) 02/11/20 12:01 ALT 15 U/L (8-55) 02/11/20 12:01 Alkaline Phosphatase 93 U/L (40-110) 02/11/20 12:01 Troponin I Less than 0.010 ng/mL (< 0.028) 02/11/20 15:21 B-Natriuretic Peptide 185.8 pg/mL (0-100) H 02/11/20 12:01 Serum Total Protein 6.6 g/dL (5.8-8.1) 02/11/20 12: Albumin 3.1 g/dL (3.4-4.8) L 02/11/20 12:01 Hospitalist H&P A/P - Plan Plan: Is a 75-year-old male patient with a history of COPD, on intermittent home oxygen recently diagnosed lung cancer among several other pathologies being admitted on account of left lower lobar pneumonia. Left lower lobe pneumonia We will continue on azithromycin and ceftriaxone PRN oxygen as needed Close monitoring. COPD Continue home meds once verified Duo nebs PRN Heart failure Not in acute exacerbation Resume home medications once verified. Squamosal carcinoma of the tongue We will follow-up with Dr. Lowery once acute events subsided. VT prophylaxisLovenox Dispositionpatient states he would want to go to [facility] tomorrow. We will continue antibiotic treatment and discuss this issue in a.m.
[2020-02-11] MEDS ORDERED: Dextrose 5% in Water 1,000 ML IV PRN (21:37)
[2020-02-11] MEDS ORDERED: Ondansetron ODT 4 MG TAB PO PRN (21:37)
[2020-02-11] MEDS ORDERED: HumaLOG 300 UNITS/3 ML VIAL SC PRN (21:37)
[2020-02-11] MEDS ORDERED: Dextrose 50% Abboject 50 ML SYRINGE SLOW IVP PRN (21:37)
[2020-02-11] MEDS ORDERED: Ondansetron PF 4 MG/2 ML Vial IVP PRN (21:37)
[2020-02-11 22:06] VITALS: BMI 28.3
[2020-02-12] MEDS ORDERED: Acetaminophen 500 MG TAB PO PRN (04:54)
[2020-02-12] MEDS ORDERED: traMADol HCl 50 MG TAB PO PRN ×2 (05:00→05:16)
[2020-02-12 06:59] LABS: #Basophils 0.1 thou/uL (0.0-0.2); #Eosinphils 0.1 thou/uL (0.0-0.7); #Lymphocytes 1.8 thou/uL (1.20-3.40); #Monocytes 1.1 thou/uL (0.11-0.59); #Neutrophils 9.5 thou/uL (1.40-6.50); %Basophils 0.4 % (0.0-1.0); %Eosinophils 0.5 % (0.0-10.0); %Lymphocytes 14.2 % (21.0-51.0); %Monocytes 8.5 % (0.0-10.0); %Neutrophils 76.4 % (42.0-75.0); Hemoglobin 12.9 g/dL (14.0-18.0); Mean Corpuscular HGB CONC 31.4 g/dL (32.0-36.0); Mean Corpuscular Hemoglobin 31.8 pg (27.0-31.0); Mean Platelet Volume 10.6 fL (7.4-10.4); Platelet Count 327 thou/uL (130-400); RBC Distribution Width 15.1 % (11.5-14.5); Red Blood Cell (RBC) Count 4.07 mill/uL (4.70-6.10); White Blood Cell (WBC) Count 12.5 thou/uL (4.8-10.8)
[2020-02-12 07:05] LABS: Anion Gap 12 mmol/L (10-20); BUN (Urea Nitrogen) 11 mg/dL (8.4-25.7); Calc. Creatinine Clearance 111 mL/min (70-130); Calcium 9.1 mg/dL (7.8-10.44); Carbon Dioxide 28 mmol/L (23-31); Chloride 104 mmol/L (98-107); Estimated GFR-MDRD Greater than 90; Glucose 148 mg/dL (83-110); Potassium 3.8 mmol/L (3.5-5.1); Sodium 140 mmol/L (136-145)
[2020-02-12 08:30] LABS: Anisocytosis SLIGHT = 6-15 cells (100X) (0-5/hpf); Elliptocytes SLIGHT = 2-5 cells (100X) (0-1/hpf); Large Platelets SLIGHT; MDiff Complete? YES; Macrocytosis SLIGHT = 6-15 cells (100X) (0-5/hpf); Platelet Morphology Comment Appears Adequate; Poikilocytosis SLIGHT = 6-15 cells (100X) (0-5/hpf); Polychromasia SLIGHT = 2-3 cells (100X) (0-2/hpf)
[2020-02-12] MEDS ORDERED: FLU VACC QS2020-21(65YR UP)/PF 240 MCG/0.7 ML SYRINGE IM ONE (09:00)
[2020-02-12] MEDS ORDERED: Enoxaparin Sodium 40 MG/0.4 ML SYRINGE SC SCH (09:00)
[2020-02-12] MEDS ORDERED: Lorazepam 0.5 MG TAB PO PRN (09:53)
[2020-02-12] MEDS ORDERED: Sodium Chloride 0.9% 1,000 ML IV SCH (10:00)
[2020-02-12] MEDS ORDERED: Azithromycin 500 MG in Sodium Chloride 0.9% 250 ML 250 ML IVPB SCH ×2 (14:00→21:00)
[2020-02-12] MEDS ORDERED: Aluminum & Magnesium Hydroxide 60 ML, Lidocaine 2% Viscous Solution 30 ML, diphenhydrAM... SSW PRN (14:58)
[2020-02-12] MEDS ORDERED: cefTRIAXone\\ROCEPHIN 1 GM in Sodium Chloride 0.9% 100 ML IVPB SCH ×2 (15:00→20:00)
[2020-02-12] MEDS: HYDROcodone/Acetaminophen 10/325 mg Tablet PO PRN ×2 (15:12→19:30)
--- NOTE | 2020-02-12 16:02 | PQF ---
CLINICAL DOCUMENTATION CLARIFICATION FORM: Dear Dr.K. RAMIREZ Date: 02/12/2020 8522 Please exercise your independent, professional judgment in responding to the clarification form. Clinical indicators are provided on the bottom of this form for your review. Please check appropriate box(es): [ ] Protein Calorie Malnutrition: [ ] Mild [ ] Moderate [ ] Severe [ ] Other Malnutrition (please specify) [ ] Underweight without malnutrition [ ] Other diagnosis [x ] Unable to determine In addition, please specify: Present on Admission (POA): [ ] Yes [ ] No [ ] Unable to determine For continuity of documentation, please document condition throughout progress notes and discharge summary. Thank You. To be completed by CDI/Coding staff for physician review: CLINICAL INDICATORS - SIGNS / SYMPTOMS / LABS / RESULTS AND LOCATION IN MR RD assessment: Nutrition diagnosis malnutrition Related to oncology, COPD as evidenced by mild temporalis muscle wasting, moderate orbital fat pad wasting suggestive of moderate malnutrition in the context of chronic illness RISK FACTORS / RESULTS AND LOCATION IN MR Squamous cell Carcinoma of tongue, advanced age (75), COPD, Pneumonia (H&P/ Affram) 02/10 TREATMENT / RESULTS AND LOCATION IN MR Dietary consult 02/11 Recommend Ensure Enlive TID Moderate Malnutrition (in acute illness) Energy Intake: <75% of estimated energy requirement for > 7 days Weight Loss: 1-2%/1 week; 5%/ 1 month; 7.5%/3 months Other: mild body fat loss; mild muscle mass loss; mild fluid accumulation; Severe Malnutrition (in acute illness) Energy Intake: = 50% of estimated energy requirement for = 5 days Weight Loss: >2%/1 week; >5%/1 month; >7.5%/3 months Other: moderate body fat loss; moderate muscle mass loss; moderate- severe fluid accumulation; measurably reduced manager highway strength Moderate Malnutrition (in chronic illness) Energy Intake: <75% of estimated energy requirement for =1 month Weight Loss: 5%/1 month; 7.5%/3 months; 10%/6 months; 20%/1 year Other: mild body fat loss; mild muscle mass loss; mild fluid accumulation Severe Malnutrition (in chronic illness) Energy Intake: =75% of estimated energy requirement for =1 month Weight Loss: >5%/1 month; >7.5%/3 months; >10%/6 months; >20%/1 year Other: severe body fat loss; severe muscle mass loss; severe fluid accumulation; measurably reduced manager highway strength Thank you! CDS Signature: Angie Keller RN Phone #: [phone] Date: 02/12/2020 1600 This is a permanent part of the Medical Record [facility]
[2020-02-12 16:09] LABS: SARS-CoV-2 MS2 Positive; SARS-CoV-2 N Gene Negative; SARS-CoV-2 S Gene Negative; SARS-CoV-2 by NAA Not Detected (NotDetected); SARS-CoV-2 orf1ab Negative
--- NOTE | 2020-02-12 19:47 | CON ---
DATE OF CONSULTATION: REASON FOR CONSULT: Squamous cell carcinoma of the base of the tongue, P16 positive. HISTORY OF PRESENT ILLNESS: Mr. 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 He began having symptoms several months ago and eventually, had a biopsy by Dr. Schuster. He has had some dysphagia and odynophagia. His has recently from metastatic lung cancer. He was due to start concurrent chemoradiation with cisplatin, but it was postponed while his was on hospice. He was seen on by Dr. Lowery. He was having significant pain, had been taking his 's 60 mg of morphine. He was prescribed a fentanyl patch and liquid morphine. He states the fentanyl patch made him "crazy." He presented to the emergency room yesterday with worsening shortness of breath and productive cough. He underwent a chest x-ray and CT angio of the chest, which showed slight left basilar pneumonia. He was admitted for treatment. He is on oxygen, IV fluids, and antibiotics. He was seen at bedside. He is complaining of throat pain. He also states he is having frequent urination and is requesting a Cottrell catheter. PAST MEDICAL HISTORY: 1. Newly-diagnosed squamous cell carcinoma of the tongue. 2. COPD. 3. Congestive heart failure. 4. Hypertension. 5. History of pancreatitis. 6. History of hepatitis C. 7. Hyperlipidemia. 8. History of atrial fibrillation. 9. [place]. 10. History of blood clots. PAST SURGICAL HISTORY: 1. Cardiac stents. 2. Splenectomy. 3. Pancreatectomy. 4. Hernia repair. ALLERGIES: NO KNOWN DRUG ALLERGIES. HOME MEDICATIONS: 1. Hydrocodone. 2. Duragesic. 3. Morphine elixir. 4. Compazine. 5. Zofran. 6. Morphine 15 mg IR. FAMILY HISTORY: Noncontributory. SOCIAL HISTORY: Recently , has 2 children. One hundred pack-year history of smoking. No alcohol. Uses marijuana. REVIEW OF SYSTEMS: Positive for fatigue, loss of appetite, sore throat, painful swallowing, cough, and urinary frequency. Otherwise, negative. PHYSICAL EXAMINATION: VITAL SIGNS: Temperature is 98.2, pulse is 75, respiratory rate 22, blood pressure is 161/97, and he is 95% on 2 L. GENERAL: This is a disheveled male, in mild distress. HEENT: Normocephalic, atraumatic. Pupils are equal and reactive to light. NECK: He has fullness in his left tonsil. CVS: Regular rate and rhythm. LUNGS: Clear. ABDOMEN: Soft and nontender. Bowel sounds are positive. EXTREMITIES: No clubbing or cyanosis. SKIN: No rash. NEUROLOGIC: Nonfocal. PERTINENT LABORATORY DATA AND X-RAYS: Current WBCs are 12.5, hemoglobin 12.9, hematocrit 41.2, and platelet count is 327,000. He has 76% neutrophils, 14% lymphocytes. Sodium is 140, potassium 3.8, chloride 104, CO2 is 28, BUN is 11, creatinine 0.73, calcium 9.1, bilirubin is 0.4, AST is 14, ALT is 15, alkaline phosphatase is 93. Troponin is negative. BNP is 185.8. Serum total protein 6.6, albumin 3.1, globulin 3.5. Radiology, per HPI. ASSESSMENT: 1. 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 2. Odynophagia secondary to above. DISCUSSION: The patient was to start concurrent chemoradiotherapy next week, but due to his 's , we received notice that he will be moving to [place] to live with his children and plans to seek treatment there. He was given the recent prescriptions for pain including Duragesic 25 mg, morphine 10 mg elixir, and morphine 15 mg IR tablets on February 06. He is not on any pain medication here, and we will add [place] 10 to his regimen. He feels he can swallow these tablets. He will continue antibiotics and IV fluids per [facility]. He will be discharged to home when stable and will follow up with medical oncologist in [place]. Thank you for the consult. Job ID: [id number] [facility] HOSPITALMariya
[2020-02-12] MEDS ORDERED: PREGABALIN PO SCH (21:00)
[2020-02-12] MEDS ORDERED: Pregabalin 50 MG CAP PO SCH (21:00)
[2020-02-12 21:19] VITALS: BP 145/81; TEMP 98.4
--- NOTE | 2020-02-12 22:10 | DIS ---
DATE OF ADMISSION: 02/11/2020 DATE OF DISCHARGE: 02/12/2020 DISCHARGE DIAGNOSES: 1. Left lower lobe pneumonia. 2. Chronic obstructive pulmonary disease. 3. Heart failure. 4. Squamous cell carcinoma of the tongue. BRIEF HOSPITAL COURSE: This is a 75-year-old male patient with a history of BPH, pancreatitis, CHF, bladder cancer, COPD, and recently diagnosed tongue cancer, presented to the ED on account of worsening shortness of breath. Of note, the patient was slightly depressed because he had lost his just about a week ago. On admission, he was noted to have left lower lobe pneumonia on x-ray and CT angiogram of the chest, which ruled out pulmonary embolism. He was started on azithromycin and ceftriaxone and admitted on to the floors. On presentation to the ED, the patient and his family had wanted to be managed at [facility], however, he required insurance clearance for transportation. As a result, he decided to stay at [facility]. After a day, his insurance clearance was done and he was given approval for transport. The patient was discharged to continue acute care management at [facility]. While at admission, however, he was assessed by Oncology, who cleared him to proceed with treatment once he is transferred to [place]. DISCHARGE EXAMINATION: GENERAL: The patient is in bed, in no acute distress. CARDIOVASCULAR: S1 and S2 present and normal. No murmurs, gallops, or rubs. RESPIRATORY: Coarse breath sounds bilaterally with occasional wheezing. ABDOMEN: Benign. EXTREMITIES: No edema. DISCHARGE CONDITION: Stable. FINANCE ADMINISTRATOR: Dr. Lowery-Oncology. Job ID: [id number]
[2020-02-13] MEDS ORDERED: Non-Formulary Item 1 EACH (Umeclidinium Bromide [Incruse Ellipta] 62.5 MCG Blst.W.Dev) INH SCH (09:00)
[2020-02-13] MEDS ORDERED: FLUoxetine HCl 20 MG CAP PO SCH ×2 (09:00)
== END 2020-02-12 21:41 | disposition short-term general hospital (02) | DRG 871 ==
LOC: ERS 11:35 → T4-B 19:01
PROVIDERS: ADMIT Student in an Organized Health Care Education/Training Program; ATTEND Student in an Organized Health Care Education/Training Program
DX: A41.9 Sepsis, unspecified organism (principal); J18.9 Pneumonia, unspecified organism; J44.0 Chronic obstructive pulmonary disease with (acute) lower respiratory infection; Z20.828 Contact with and (suspected) exposure to other viral communicable diseases; C02.9 Malignant neoplasm of tongue, unspecified; N40.0 Benign prostatic hyperplasia without lower urinary tract symptoms; E11.9 Type 2 diabetes mellitus without complications; E78.5 Hyperlipidemia, unspecified; I11.0 Hypertensive heart disease with heart failure; I50.9 Heart failure, unspecified; B18.2 Chronic viral hepatitis C; I48.91 Unspecified atrial fibrillation; F41.9 Anxiety disorder, unspecified; Z87.891 Personal history of nicotine dependence; Z88.8 Allergy status to other drugs, medicaments and biological substances; Z88.1 Allergy status to other antibiotic agents; Z79.899 Other long term (current) drug therapy; Z79.51 Long term (current) use of inhaled steroids; Z79.84 Long term (current) use of oral hypoglycemic drugs; I25.2 Old myocardial infarction; Z90.49 Acquired absence of other specified parts of digestive tract
CPT/HCPCS: 36415; 36416; 71045; 71275; 80048; 80053; 83605; 83880; 84484; 85025; 87040; 87635; 93005; 94640; J0456; J0692; J0696; J2405; J3490; J7050; J7620; Q0163; Q9967; U0003